=== PATIENT | female | born 1990 | race Two or more races ===

== ENCOUNTER 2022-01-12 08:08 | Emergency (ER) | payer SELFPAY ==
[~2022-01-12] VITALS: Ht 154.9 cm; Wt 91.8 kg
[2022-01-12] MEDS ORDERED: IV NORMAL SALINE 1000ML BAG 1,000 ML IV SCH (08:30)
[2022-01-12] MEDS ORDERED: MORPHINE SULFATE 2 MG/ML INJ. IVP ONE (08:30)
[2022-01-12] MEDS ORDERED: KETOROLAC 15 MG/ML VIAL. IVP ONE (08:30)
[2022-01-12 08:40] LABS: BASO % 1 % (0-3); EOS % 1 % (0-3); HEMATOCRIT 37.4 % (36.0-47.0); HEMOGLOBIN 12.1 g/dL (12.0-15.5); LYMPH # 2.4 x10^3/uL (1.0-4.8); LYMPH % 42 % (24-48); MEAN CORPUSCULAR HEMOGLOBIN 29 pg (25-35); MEAN CORPUSCULAR HGB CONC 32 g/dL (31-37); MEAN CORPUSCULAR VOLUME 89 fL (79-100); MONO # 0.3 x10^3/uL (0.0-1.1); MONO % 6 % (0-9); NEUT % 52 % (31-73); PLATELET COUNT 296 x10^3/uL (140-400); RED BLOOD COUNT 4.22 x10^6/uL (3.50-5.40); RED CELL DISTRIBUTION WIDTH 14.4 % (11.5-14.5); WHITE BLOOD COUNT 5.9 x10^3/uL (4.0-11.0)
[2022-01-12 08:47] LABS: CALCIUM 8.9 mg/dL (8.5-10.1); CREATININE 0.8 mg/dL (0.6-1.0); GFR 82.6; POTASSIUM 3.5 mmol/L (3.5-5.1)
[2022-01-12 08:54] LABS: ALBUMIN 3.5 g/dL (3.4-5.0); ALBUMIN/GLOBULIN RATIO 0.9 (1.0-1.7); TOTAL BILIRUBIN 0.4 mg/dL (0.2-1.0); TOTAL PROTEIN 7.3 g/dL (6.4-8.2)
[2022-01-12 08:55] LABS: PREG TEST PT QUAL NEGATIVE (NEG)
--- NOTE | 2022-01-12 09:04 | RAD ---
CT ABDOMEN+PELVIS WO History: Right flank pain. Comparison: None. Technique: CT of the abdomen and pelvis without contrast. Findings: Lung bases are clear. The liver, gallbladder, pancreas, spleen, and adrenal glands are unremarkable. There are unremarkable. Punctate right nephroliths with a 5 mm stone at the right ureteropelvic junct ion. No hydronephrosis. No left nephrolithiasis. The bladder is decompressed and otherwise unremarkab le. Uterus and adnexa are within normal limits. Postsurgical changes of the stomach from possible partial gastrectomy. The small bowel is unremarkabl e. Surgical changes at the cecum likely appendectomy. Colon is unremarkable. No free air or free flui d. No adenopathy. The unenhanced vasculature is unremarkable. Osseous structures and soft tissues are within normal limits. Impression: 1. Right ureteropelvic junction stone measuring 5 mm. No hydronephrosis. 2. Punctate right nephrolithiasis. ------ Exposure: One or more of the following individualized dose reduction techniques were utilized for thi s examination: 1. Automated exposure control 2. Adjustment of the mA and/or kV according to patient size 3. Use of iterative reconstruction technique. Electronically signed by: Lucien London MD (01/12/2022 9:02 AM) [facility]
[2022-01-12 09:37] LABS: BACTERIA,URINE MODERATE /HPF (0-FEW); RBC,URINE TNTC /HPF (0-2)
--- NOTE | 2022-01-12 09:38 | PHYS DOC ---
Past Medical History Past Medical History: No Pertinent History Additional Past Medical Histor: INSOMNIA Past Surgical History: Appendectomy, , Tubal ligation Smoking Status: Never Smoker Alcohol Use: Occasionally Drug Use: None General Adult EDM: Chief Complaint: FLANK PAIN HPI: HPI: Patient is a 31 year old female presents to the ER with right-sided flank pain that radiates to the right side of the abdomen. Patient states that started today has not had symptoms like this prior. Denies any fevers or chills denies any hesitancy reports sudden hematuria that started approximately 1 hour prior to arrival. Review of Systems: Review of Systems: Constitutional: Denies fever or chills. [] Eyes: Denies change in visual acuity. [] HENT: Denies nasal congestion or sore throat. [] Respiratory: Denies cough or shortness of breath. [] Cardiovascular: Denies chest pain or edema. [] GI: Denies abdominal pain, nausea, vomiting, bloody stools or diarrhea. [] : Flank pain, hematuria denies dysuria. [] Musculoskeletal: Denies back pain or joint pain. [] Integument: Denies rash. [] Neurologic: Denies headache, focal weakness or sensory changes. [] Endocrine: Denies polyuria or polydipsia. [] Lymphatic: Denies swollen glands. [] Psychiatric: Denies depression or anxiety. [] Heart Score: C/O Chest Pain: No Risk Factors: Risk Factors: DM, Current or recent (<one month) smoker, HTN, HLP, family history of CAD, obesity. Risk Scores: Score 0 - 3: 2.5% MACE over next 6 weeks - Discharge Home Score 4 - 6: 20.3% MACE over next 6 weeks - Admit for Clinical Observation Score 7 - 10: 72.7% MACE over next 6 weeks - Early Invasive Strategies Current Medications: Current Medications Medications (Trade) Dose Ordered Sig/Tang Start Time Stop Time Status Last Admin Dose Admin Ketorolac Tromethamine (Toradol 15mg Vial) 15 mg 1X ONCE 01/12/22 08:30 01/12/22 08:31 DC 01/12/22 09:12 15 MG Morphine Sulfate (Morphine Sulfate) 2 mg 1X ONCE 01/12/22 08:30 01/12/22 08:31 DC 01/12/22 09:11 2 MG Sodium Chloride 1,000 ml @ 1,000 mls/hr Q1H 01/12/22 08:30 01/12/22 09:29 DC 01/12/22 09:11 1,000 MLS/HR Allergies: Allergies: Allergies Coded Allergies Type Severity Reaction Last Updated Verified No Known Drug Allergies 12/21/15 No Physical Exam: PE: Constitutional: Well developed, well nourished, no acute distress, non-toxic appearance. Appears in moderate pain HENT: Normocephalic, atraumatic, bilateral external ears normal, oropharynx mo ist, no oral exudates, nose normal. [] Eyes: PERRLA, EOMI, conjunctiva normal, no discharge. [] Neck: Normal range of motion, no tenderness, supple, no stridor. [] Cardiovascular:Heart rate regular rhythm, no murmur [] Lungs & Thorax: Bilateral breath sounds clear to auscultation [] Abdomen: Bowel sounds normal, soft, no tenderness, no masses, no pulsatile masses. [] Skin: Warm, dry, no erythema, no rash. [] Back: Right-sided CVA tenderness no tenderness, Extremities: No tenderness, no cyanosis, no clubbing, ROM intact, no edema. [] Neurologic: Alert and oriented X 3, normal motor function, normal sensory function, no focal deficits noted. [] Psychologic: Affect normal, judgement normal, mood normal. [] Current Patient Data: Labs: Laboratory Tests Test 01/12/22 08:24 White Blood Count 5.9 x10^3/uL (4.0-11.0) Red Blood Count 4.22 x10^6/uL (3.50-5.40) Hemoglobin 12.1 g/dL (12.0-15.5) Hematocrit 37.4 % (36.0-47.0) Mean Corpuscular Volume 89 fL (79-100) Mean Corpuscular Hemoglobin 29 pg (25-35) Mean Corpuscular Hemoglobin Concent 32 g/dL (31-37) Red Cell Distribution Width 14.4 % (11.5-14.5) Platelet Count 296 x10^3/uL (140-400) Neutrophils (%) (Auto) 52 % (31-73) Lymphocytes (%) (Auto) 42 % (24-48) Monocytes (%) (Auto) 6 % (0-9) Eosinophils (%) (Auto) 1 % (0-3) Basophils (%) (Auto) 1 % (0-3) Neutrophils # (Auto) 3.0 x10^3/uL (1.8-7.7) Lymphocytes # (Auto) 2.4 x10^3/uL (1.0-4.8) Monocytes # (Auto) 0.3 x10^3/uL (0.0-1.1) Eosinophils # (Auto) 0.0 x10^3/uL (0.0-0.7) Basophils # (Auto) 0.0 x10^3/uL (0.0-0.2) Sodium Level 139 mmol/L (136-145) Potassium Level 3.5 mmol/L (3.5-5.1) Chloride Level 104 mmol/L (98-107) Carbon Dioxide Level 23 mmol/L (21-32) Anion Gap 12 (6-14) Blood Urea Nitrogen 10 mg/dL (7-20) Creatinine 0.8 mg/dL (0.6-1.0) Estimated GFR (Cockcroft-Gault) 82.6 BUN/Creatinine Ratio 13 (6-20) Glucose Level 151 mg/dL (70-99) H Calcium Level 8.9 mg/dL (8.5-10.1) Total Bilirubin 0.4 mg/dL (0.2-1.0) Aspartate Amino Transferase (AST) 18 U/L (15-37) Alanine Aminotransferase (ALT) 19 U/L (14-59) Alkaline Phosphatase 67 U/L (46-116) Total Protein 7.3 g/dL (6.4-8.2) Albumin 3.5 g/dL (3.4-5.0) Albumin/Globulin Ratio 0.9 (1.0-1.7) L Serum Test, Qualitative Negative (NEG) Laboratory Tests 01/12/22 08:24 Laboratory Tests 01/12/22 08:24 Vital Signs: Vital Signs Date Time Temp Pulse Resp B/P (MAP) Pulse Ox O2 Delivery O2 Flow Rate FiO2 01/12/22 09:11 16 Room Air 01/12/22 08:31 98.3 74 124/59 (80) 99 98.3 EKG: EKG: [] Radiology/Procedures: Radiology/Procedures: [] CT ABDOMEN+PELVIS WO History: Right flank pain. Comparison: None. Technique: CT of the abdomen and pelvis without contrast. Findings: Lung bases are clear. The liver, gallbladder, pancreas, spleen, and adrenal glands are unremarkable. There are unremarkable. Punctate right nephroliths with a 5 mm stone at the right ureteropelvic junction. No hydronephrosis. No left nephrolithiasis. The bladder is decompressed and otherwise unremarkable. Uterus and adnexa are within normal limits. Postsurgical changes of the stomach from possible partial gastrectomy. The small bowel is unremarkable. Surgical changes at the cecum likely appendectomy. Colon is unremarkable. No free air or free fluid. No adenopathy. The unenhanced vasculature is unremarkable. Osseous structures and soft tissues are within normal limits. Impression: 1. Right ureteropelvic junction stone measuring 5 mm. No hydronephrosis. 2. Punctate right nephrolithiasis. Course & Med Decision Making: Course & Med Decision Making Pertinent Labs and Imaging studies reviewed. (See chart for details) Patient is currently pain-free. Patient given strict return precaution follow- up with urology. Questions and concerns were addressed Laboratory Tests Test 01/12/22 08:24 White Blood Count 5.9 x10^3/uL Red Blood Count 4.22 x10^6/uL Hemoglobin 12.1 g/dL Hematocrit 37.4 % Mean Corpuscular Volume 89 fL Mean Corpuscular Hemoglobin 29 pg Mean Corpuscular Hemoglobin Concent 32 g/dL Red Cell Distribution Width 14.4 % Platelet Count 296 x10^3/uL Neutrophils (%) (Auto) 52 % Lymphocytes (%) (Auto) 42 % Monocytes (%) (Auto) 6 % Eosinophils (%) (Auto) 1 % Basophils (%) (Auto) 1 % Neutrophils # (Auto) 3.0 x10^3/uL Lymphocytes # (Auto) 2.4 x10^3/uL Monocytes # (Auto) 0.3 x10^3/uL Eosinophils # (Auto) 0.0 x10^3/uL Basophils # (Auto) 0.0 x10^3/uL Sodium Level 139 mmol/L Potassium Level 3.5 mmol/L Chloride Level 104 mmol/L Carbon Dioxide Level 23 mmol/L Anion Gap 12 Blood Urea Nitrogen 10 mg/dL Creatinine 0.8 mg/dL Estimated GFR (Cockcroft-Gault) 82.6 BUN/Creatinine Ratio 13 Glucose Level 151 mg/dL Calcium Level 8.9 mg/dL Total Bilirubin 0.4 mg/dL Aspartate Amino Transf (AST/SGOT) 18 U/L Alanine Aminotransferase (ALT/SGPT) 19 U/L Alkaline Phosphatase 67 U/L Total Protein 7.3 g/dL Albumin 3.5 g/dL Albumin/Globulin Ratio 0.9 Serum Test, Qualitative Negative Current Medications Medications (Trade) Dose Ordered Sig/Tang Route PRN Reason Start Time Stop Time Status Last Admin Dose Admin Sodium Chloride 1,000 ml @ 1,000 mls/hr Q1H IV 01/12/22 08:30 01/12/22 09:29 DC 01/12/22 09:11 1,000 MLS/HR Ketorolac Tromethamine (Toradol 15mg Vial) 15 mg 1X ONCE IVP 01/12/22 08:30 01/12/22 08:31 DC 01/12/22 09:12 15 MG Morphine Sulfate (Morphine Sulfate) 2 mg 1X ONCE IVP 01/12/22 08:30 01/12/22 08:31 DC 01/12/22 09:11 2 MG Dragon Disclaimer: Roxana Disclaimer: This electronic medical record was generated, in whole or in part, using a voice recognition dictation system. Departure Departure Referrals: UNKNOWN PCP NAME (PCP) STEFANO COLBERT DO Jan 12, 2022 09:38
[2022-01-12] MEDS ORDERED: TAMS0.4C97 PO (09:56)
[2022-01-12] MEDS ORDERED: IBUP-1007 PO (09:56)
[2022-01-12] MEDS ORDERED: OXYC1TAB15 PO (09:56)
[2022-01-12 10:25] VITALS: BP 109/59
--- NOTE | 2022-01-12 10:37 | EKG ---
[facility] [address] [place] [id number] Test Date: 2022-01-12 Test Time: 09:17:19 Pat Name: MARY FIGUEREDO Department: Room: Gender: F [employer]: : [id number] Requested By: STEFANO COLBERT Order Number: [id number] Reading MD: Oneal Wagoner Measurements Intervals Schuyler Rate: 67 P: 34 MS: 158 QRS: 30 QRSD: 84 T: 3 QT: 376 QTc: 400 Interpretive Statements SINUS RHYTHM NORMAL ECG RI6.02 No previous ECG available for comparison Electronically Signed On 01-13-2022 18:12:12 CDT by Oneal Wagoner
== END 2022-01-12 10:26 | disposition home or self-care (01) ==
LOC: ER 08:08
DX: N20.2 Calculus of kidney with calculus of ureter (principal); Z90.89 Acquired absence of other organs; Z98.890 Other specified postprocedural states; Z98.51 Tubal ligation status
CPT/HCPCS: 36415; 80053; 81001; 84703; 85025; 87086; 93005; 96361; 96374; 96375; 99285; J1885; J2270; J7030